=== PATIENT | female | born 1970 | race Caucasian/White ===

== ENCOUNTER 2021-01-12 19:32 | Emergency (ER) | payer OTHER ==
[~2021-01-12] VITALS: Ht 165.1 cm; Wt 86.2 kg
[2021-01-12 19:37] VITALS: BP_SYST 116
--- NOTE | 2021-01-12 19:37 | NUR ---
Patient to [facility] for evaluation. Side rails up.
--- NOTE | 2021-01-12 19:45 | NUR ---
Patient brought in complaining right leg pain and left heel pain s/p fall. patient is ambulatory. pain 08/04
--- NOTE | 2021-01-12 21:03 | NUR ---
ER Dr. Gupta at bedside examining patient.
[2021-01-12] MEDS ORDERED: KETOROLAC TROMETHAMINE 60 MG/2 ML VIAL IM ONE (21:15)
[2021-01-12] MEDS ORDERED: IBUP-1969 PO (22:10)
[2021-01-12 22:22] VITALS: BP_SYST 118
--- NOTE | 2021-01-12 22:22 | NUR ---
Patient given written and verbal discharge instructions and verbalizes understanding. ER MD discussed with patient the results and treatment provided. Patient in stable condition. ID arm band removed. Rx of ibuprofen given. Patient educated on pain management and to follow up with PMD. Pain Scale 0/10 Opportunity for questions provided and answered. Medication side effect fact sheet provided.
== END 2021-01-12 22:22 | disposition home or self-care (01) ==
LOC: SED 19:32
DX: S86.811A Strain of other muscle(s) and tendon(s) at lower leg level, right leg, initial encounter (principal); M79.672 Pain in left foot; X50.1XXA Overexertion from prolonged static or awkward postures, initial encounter; Y93.89 Activity, other specified; Y92.89 Other specified places as the place of occurrence of the external cause; Y99.0 Civilian activity done for income or pay
CPT/HCPCS: 73590; 73630; 96372; 99284; J1885